=== PATIENT | male | born 1970 | race Caucasian/White ===

== ENCOUNTER 2016-06-08 15:05 | Emergency (ER) | payer MEDICARE, MEDICAID ==
[2016-06-08 15:12] VITALS: PULSE 58; RESP 18; TEMP 96.7; O2SAT 97
[2016-06-08] MEDS ORDERED: LIDOCAINE 2% W/ EPI MPF 20 ML SOL SC ONE (15:26)
[2016-06-08] MEDS ORDERED: LIDOCAINE 2% W/ EPI MPF 20 ML SOL ONE (15:27)
[2016-06-08 15:41] VITALS: BP 116/74
== END 2016-06-08 15:47 | disposition home or self-care (01) | DRG 156 ==
LOC: ED 15:05
DX: S01.21XA Laceration without foreign body of nose, initial encounter (principal); W19.XXXA Unspecified fall, initial encounter
CPT/HCPCS: 99283; G0168